=== PATIENT | male | born 1990 | race Caucasian/White ===

== ENCOUNTER 2024-08-19 22:26 | Emergency (ER) | payer OTHER ==
[~2024-08-19] VITALS: Ht 170.2 cm; Wt 108.9 kg
[~2024-08-19 22:26] MED LIST: DOXYCYCLINE HY100 MG PO
[2024-08-19 22:32] VITALS: PULSE 57; RESP 18; TEMP 97.9
[2024-08-19] MEDS: KETOROLAC TROMETHAMINE 60 MG/2 ML VIAL IM STA (22:48)
[2024-08-19] MEDS ORDERED: KETOROLAC TROMETHAMINE 60 MG/2 ML VIAL ONE (22:51)
[2024-08-19] MEDS: IBUPROFEN 600 MG TAB PO STA (23:05)
[2024-08-19 23:59] VITALS: BP 142/70; PULSE 55; RESP 17; TEMP 98.2; O2SAT 100
== END 2024-08-19 23:57 | disposition home or self-care (01) ==
LOC: ER 22:30
DX: S60.221A Contusion of right hand, initial encounter (principal); W01.0XXA Fall on same level from slipping, tripping and stumbling without subsequent striking against object, initial encounter; Y93.01 Activity, walking, marching and hiking; Y92.89 Other specified places as the place of occurrence of the external cause
CPT/HCPCS: 73130; 99283; J1885